=== PATIENT | female | born 1945 | race Caucasian/White ===

== ENCOUNTER → 2022-02-06 09:06 | Outpatient (BNVA) | payer MEDICARE, SELFPAY | PROVIDERS: Family Provider Family Medicine; PCP Family Medicine; Visit Provider Family Medicine | DX: M54.16 Radiculopathy, lumbar region (principal) | CPT/HCPCS: 72100 ==

== ENCOUNTER → 2022-03-13 10:07 | Outpatient (BNVA) | payer MEDICARE, SELFPAY | PROVIDERS: Family Provider Family Medicine; PCP Family Medicine; Referring Provider Family Medicine; Visit Provider Orthopaedic Surgery | DX: M54.16 Radiculopathy, lumbar region (principal) | CPT/HCPCS: 99203; 99204 ==

== ENCOUNTER → 2022-03-20 15:08 | Outpatient (BNVA) | payer MEDICARE, SELFPAY | PROVIDERS: Family Provider Family Medicine; PCP Family Medicine; Referring Provider Family Medicine; Visit Provider Podiatrist Foot & Ankle Surgery | DX: M79.671 Pain in right foot (principal); M21.611 Bunion of right foot | CPT/HCPCS: 73630; 99203; 99204 ==

== ENCOUNTER 2022-03-24 14:09 | Emergency (ER) | payer MEDICARE, SELFPAY ==
[2022-03-24 14:30] VITALS: BP 156/72; PULSE 69; RESP 14; TEMP 36.6; O2SAT 100
--- NOTE | 2022-03-24 15:28 | MRR_ITS ---
PROCEDURE INFORMATION: Exam: MR Thoracic Spine Without Contrast Exam date and time: 03/24/2022 4:02 PM Age: 76 years old Clinical indication: Pain in thoracic spine; Additional info: Pain weakness and numbness TECHNIQUE: Imaging protocol: Multiplanar magnetic resonance images of the thoracic spine without contrast. COMPARISON: CR XR lumbar spine 2-3V* [id number] 02/06/2022 9:23 AM FINDINGS: Vertebrae: No acute fracture. Old slight anterior wedging of T4 and T7 through T12. Slight spondylolisthesis at T2-3 and T5-6. Slight scoliosis. Spinal cord: Termination of the conus at the L1-L2 level. No abnormal signal in the cord. Discs/Spinal canal/Neural foramina: Degeneration of multiple thoracic discs. Degeneration of the C4-C5 through C6-C7 discs noted on the sagittal images obtained for counting purposes. Small central focal disc protrusion at T7-8 and left central focal disc protrusion at T9-10. Minimal left central focal disc protrusion at T12-L1. No significant canal stenosis. Soft tissues: No acute finding. MR/MR thoracic spin wo con* [id number] IMPRESSION: No acute fracture. Multiple old slight compression fractures and multilevel degenerative disease detailed above.
--- NOTE | 2022-03-24 15:28 | MRR_ITS ---
PROCEDURE INFORMATION: Exam: MR Lumbar Spine Without Contrast Exam date and time: 03/24/2022 4:23 PM Age: 76 years old Clinical indication: Other: Extreme lbp heard pop; Additional info: Pain weakness and numbness TECHNIQUE: Imaging protocol: Multiplanar magnetic resonance images of the lumbar spine without intravenous contrast. COMPARISON: CR XR lumbar spine 2-3V* [id number] 02/06/2022 9:23 AM FINDINGS: Vertebrae: No acute fracture or suggestion of a pars defect. Old mild anterior wedging of L1. Mild scoliosis. Spinal cord: Termination of the normal conus at the L1-L2 level. L1-L2: Continued marked narrowing of the L1-L2 disc. Central to left central focal disc extrusion at L1-L2 extending slightly superior to the disc level causing mild canal stenosis. Mild right foraminal stenosis at this level. L2-L3: Continued very marked disc narrowing at L2-L3. Annular bulging, ligamentum flavum hypertrophy, mild to moderate canal stenosis and marked right and [id number]-pd-lpqozara left foraminal stenoses at this level. L3-L4: Continued marked disc narrowing at L3-L4. Annular bulging, ligamentum flavum hypertrophy, moderate canal stenosis and marked left and [id number]-[id number] right foraminal stenoses at this level. L4-L5: Continued at least mild narrowing of the L4-L5 disc. Desiccation of this disc along with annular bulging, a broad-based left foraminal focal disc protrusion, ligamentum flavum hypertrophy, moderate canal stenosis and marked left and mild right foraminal stenoses at this level. L5-S1: Continued severe narrowing of the L5-S1 disc. Central focal disc protrusion, ligamentum flavum hypertrophy, minimal canal stenosis and moderate to marked bilateral foraminal stenoses at this level. Soft tissues: No acute soft tissue finding. MR/MR lumbar spine wo con* [id number] IMPRESSION: No acute fracture. Old mild L1 compression fracture. Extensive prominent degenerative disease with several disc protrusions/extrusions and significant canal and foraminal stenoses detailed above.
--- NOTE | 2022-03-24 16:12 | PC.NURSE ---
PT IS NOT IN ROOM. WILL RECHECK IN 30 MINS.
--- NOTE | 2022-03-24 16:28 | PC.NURSE ---
PT NOT IN ROOM WILL CONTINUE TO MONITOR FOR HER TO RETURN.
--- NOTE | 2022-03-24 16:43 | W.ED.EXTPRO ---
HPI - Extremity Problem General: Chief complaint: Extremity Injury, Lower Stated complaint: Leg pain Right Time Seen by Provider: 03/24/22 15:18 Source: patient Mode of arrival: ambulatory Limitations: no limitations History of Present Illness: 76 yo female patient presents to ER with low back pain and pain in her left leg. Pt states the pain is so intense she can not bear it. Pt states she lost control of her bladder this am but states it is due to the pain. Pt denies any perianal numbness or tingling. Pt denies any known trauma or injury. Pt denies any hx of iv dug abuse. Pt denies any fever, n/v/d. pt dnies any chest pain or SOB Associated symptoms: Deny chest pain, fever(s) or rash Review of Systems Const: Denies: fever(s), chills, body aches, change in appetite, change in weight, fatigue, malaise or diaphoresis Eyes: Denies: change in vision, blurry vision, blind spots, photophobia, eye discomfort, eye discharge, eye redness, floaters or seeing flashes ENMT: Denies: throat pain, uvular edema, enlarged tonsils, odynophagia, hoarseness, mouth pain, swelling of lips/tongue, oral sores, bleeding gums, dental pain, dry mouth, ear or mastoid pain, ear discharge, change in hearing, tinnitus, disequilibrium, nasal discharge, nasal congestion, post nasal drip or sinus pain Card: Denies: chest pain, palpitations, irregular heart rhythm, edema, swelling of feet/ankles, lightheadedness, syncope, pre-syncope, dyspnea on exertion, orthopnea, leg pain with exertion or acrocyanosis Resp: Denies: dyspnea, productive cough, non-productive cough, wheezing, stridor, pain on inspiration, change in phlegm color, hemoptysis or chest congestion GI: Denies: abdominal pain, nausea, vomiting, hematemesis, dysphagia, diarrhea, constipation, GI cramping, change in bowel habits or rectal pain : Denies: flank pain, difficulty voiding, dysuria, urinary frequency, urinary urgency, urinary hesitancy or hematuria Musc: Denies: neck pain, extremity swelling, joint pain, joint swelling, joint redness, joint warmth or deformity Skin/Breast: Denies: rash, pruritus, erythema, sores, new lesions, changes in skin color or dry skin Neuro: Denies: headache(s), numbness in extremities, weakness in extremities, sensory changes, lack of coordination, difficulty walking, frequent falls, dizziness, vertigo, confusion, behavioral changes, Slurred speech present, difficulty communicating thoughts or seizure-like activity Psych: Denies: anxiety, depression, suicidal ideation or homicidal ideation Endo: Denies: polyuria, polydipsia, tired all the time, cold intolerance, excessive sweating, flushing, hot flashes or heat intolerance Iam/Lymph: Denies: easy bruising, easy bleeding, petechiae, purpura, enlarged lymph nodes or tender lymph nodes All/Imm: Denies: urticaria, throat swelling, tongue swelling, facial swelling, acute wheezing or itchy eyes PFSH ED PFSH: Medical History Allergic rhinitis Benign hypertension RIP (generalized anxiety disorder) Hypothyroidism Osteoarthritis Post-menopausal Psychophysiological insomnia Surgical History H/O section H/O: hysterectomy S/P tonsillectomy Social History Smoking and tobacco status: former smoker Quit status (tobacco): has quit using tobacco Year quit tobacco: teenager Former quit date comment: smoked for 1 year- couple cigerettes a day Second hand smoke exposure: No Smoking risk assessment/counseling performed?: No Alcohol intake: current Alcohol intake frequency: holidays/special occasions only Alcohol type: wine Desire information about alcohol rehabilitation?: No Desire information about substance/drug rehabilitation?: No Lives independently: No Household members: spouse Current occupational status: retired History of recent travel: No Current gender identity: Female Physical Exam Const: COMMON NORMALS: no acute distress, patient oriented x3, healthy appearing, alert and well nourished GENERAL APPEARANCE: cooperative, comfortable, well kempt and well developed; not ill appearing ORIENTATION/CONSCIOUSNESS: Yes awake, Yes oriented to person, Yes oriented to place and Yes oriented to time HENMT: COMMON NORMALS: normocephalic, atraumatic, Normal external nose present and moist oral mucous membranes HEAD & SCALP: normal to inspection, normocephalic and atraumatic FACE & SINUS: normal facial exam, sinuses nontender and face symmetric NOSE: Normal external nose present THROAT: no uvular edema Eye: COMMON NORMALS: Equal, round and reactive pupils present, EOMs intact bilaterally, conjunctivae normal and no scleral icterus GENERAL EYE: appearance normal, both eyes and all related structures EYELID: eyelids normal CONJUNCTIVA: Yes conjunctivae normal SCLERA: sclerae normal CORNEA: Yes corneas normal PUPIL: Yes Equal, round and reactive pupils present Neck/C-Spine: COMMON NORMALS: full ROM, no lymphadenopathy, supple, no meningeal signs, no JVD and Thyroid normal GENERAL: Yes normal visual inspection and Yes trachea midline THYROID: Thyroid normal CERVICAL SPINE: Yes cervical ROM normal Lymph: LYMPHATIC: no lymphadenopathy noted and no lymphedema noted Chest: COMMONS NORMALS: normal inspection of the chest and normal palpation of entire chest wall Resp: COMMON NORMALS: normal respiratory effort, No retractions, No use of accessory muscles and clear to auscultation bilaterally EFFORT & INSPECTION: Yes able to speak in complete sentences and Yes symmetric chest movement AUSCULTATION: clear to auscultation bilaterally Cardio: COMMON NORMALS: no JVD, regular rate and regular rhythm RATE: regular rate RHYTHM: regular rhythm GI: COMMON NORMALS: Normal to inspection, nondistended, normoactive bowel sounds present, Soft to palpation, non-tender, No hepatosplenomegaly present, no masses and no bruits INSPECTION: Yes normal to inspection AUSCULTATION: Yes normoactive bowel sounds PALPATION: Yes Soft to palpation and Yes No hepatosplenomegaly present PERCUSSION: normal to percussion RECTAL EXAM: deferred : COMMON NORMALS: Yes no CVA tenderness, Yes normal external appearance, Yes normal appearance of the vagina, Yes normal appearance of the cervix, Yes normal bimanual exam, Yes No adnexal tenderness and Yes no masses BLADDER/KIDNEY EXAM: Yes no CVA tenderness BIMANUAL EXAM - VAGINA & UTERUS: Yes normal bimanual exam Back/Pelvis: COMMON NORMALS: no CVA tenderness, thoracic and lumbar spine normal to inspection, no thoracic nor lumbar tenderness, thoraco-lumbar ROM normal and straight leg raise negative bilaterally THORACIC SPINE/UPPER BACK: Yes normal to inspection LUMBAR SPINE/LOWER BACK: Yes normal to inspection Extremity: COMMON NORMALS: normal to inspection, full ROM and capillary refill normal GENERAL: Yes normal exam except as noted Neuro: COMMON NORMALS: patient oriented x3, CN's II-XII intact bilaterally, moves all extremities, no focal motor deficits, no sensory deficits noted, deep tendon reflexes 2+ bilaterally and gait normal SENSORIUM/ORIENTATION: Yes alert, Yes oriented to person, Yes oriented to place and Yes oriented to time MENINGEAL SIGNS: Yes no meningeal signs CRANIAL NERVES: Yes CN normal except as noted SPEECH: speech normal GAIT: Yes Normal gait present SENSORY EXAM: Yes extremities MOTOR EXAM: 5/5 motor strength present throughout Psych: COMMON NORMALS: mental status grossly normal, Normal thought process present, cooperative, normal affect, speech normal, activity/motor behavior normal, denies hallucinations, denies homicidal ideation and denies suicidal ideation APPEARANCE: Yes grossly normal and Yes well kempt ATTITUDE: Yes calm ACTIVITY/MOTOR BEHAVIOR: Yes appropriate eye contact SPEECH: Yes normal speech THOUGHT PROCESS: Normal thought process present THOUGHT CONTENT: Yes Normal thought content present ATTENTION/CONCENTRATION: Yes attention grossly intact MEMORY/COGNITION: Yes memory grossly intact INSIGHT: Good insight present (Psych) JUDGEMENT: Good judgement present (Psych) Skin: COMMON NORMALS: no rashes or lesions noted, no wounds, turgor normal, no jaundice, no petechiae and no mottling GENERAL SKIN EXAM: no rashes or lesions noted and turgor normal Course Vital Signs: Vital signs: Vital Signs Temperature 97.9 F 03/24/22 14:30 Pulse Rate 69 03/24/22 14:30 Respiratory Rate 14 03/24/22 14:30 Blood Pressure 156/72 03/24/22 14:30 Pulse Oximetry 100 03/24/22 14:30 MDM - Extremity (Nontraumatic) Medical Decision Making Patient is well appearing non toxic and stats she is unable to ambulate pt rates pain 10/10. Given patient clinical exam findings as well as complaints I will plan to MR her at this time. Report given to DULCE Vivas at this time Discharge Plan Discharge Condition: Stable Prescriptions: No Action melatonin 3 mg capsule 3 mg PO DAILY 0RF respiratory virus PO 0RF ketotifen fumarate [Zaditor] 0.025 % (0.035 %) drops 1 drop ophthalmic (eye) BID 0RF Eucrisa 2 % ointment 1 applic TOPICAL BID 0RF multivitamin [Multiple Vitamins] Tablet 1 tab PO QAM 0RF Probiotic 100 billion cell capsule 1 cap PO DAILY 0RF magnesium 250 mg tablet 400 mg PO QDAY 0RF triamcinolone acetonide 0.025 % cream 1 applic TOPICAL TID PRN (Reason: itching) Qty: 80 2RF vkfpwrsp-elyxlirct-QE 3.5-10,000-1 mg/mL-unit/mL-% drops,suspension 1 drp EAR-BOTH BID PRN (Reason: EAR ITCHING ) Qty: 10 2RF levothyroxine 50 mcg tablet 50 mcg PO DAILY 30 Days Qty: 30 10RF tramadol 50 mg tablet 50 mg PO TID PRN (Reason: pain) 10 Days Qty: 30 0RF gabapentin 100 mg capsule 300 mg PO TID MDD 9 caps PRN (Reason: pain) Qty: 30 1RF Rx Instructions: 1-3 caps up to three times a day as needed for pain estriol 2.5mg\estradiol 0.3125mg\erston 0.3125mg\DHEA 10mg\testosterone 0.5mg\progesterone 200mg no mint PO 0RF Rx Instructions: Dissolve 1\2 fredis between upper cheek and gums twice daily fluticasone propionate 50 mcg/actuation spray,suspension 1 spray INTRANASAL DAILY Qty: 16 5RF Rx Instructions: administer into each nostril Referrals: Sonali Santos MD [Primary Care Provider] - Coding Level of Care Code ED Efficiency Expert for Anjali Cai
[2022-03-24] MEDS: HYDROcodone-acetaminophen 5-325 mg Tablet 1 TAB PO (16:57)
[2022-03-24 17:20] LABS: Add Urine Microscopic? NO
[2022-03-24 17:22] LABS: Charge for UA Resulting for Rev
[2022-03-24 17:25] LABS: Bilirubin Urine Neg (Negative); Blood Urine Neg (Negative); Glucose Urine UA Norm (Normal); Ketones Urine 2+ (Negative); Leukocyte Esterase Urine Negative (Negative); Nitrate Urine Negative (Negative); Protein Urine Neg (Negative); Urine Appearance Clear (CLEAR); Urine Color Yellow (Yellow); Urobilinogen Urine Norm (Negative); pH Urine 5 (5-7)
[2022-03-24 17:26] LABS: Basophils % 0.4 %; Eosinophils % 0.2 %; Hematocrit 35.1 % (37.0-47.0); Hemoglobin 12.9 g/dL (11.5-15.3); Lymphocytes # 1.1 10^3/uL (0.8-4.8); Lymphocytes % 10.5 %; Mean Corpuscular HGB Conc 36.8 g/dL (30.0-36.0); Mean Corpuscular Hemoglobin 34.6 pg (28.0-34.0); Mean Corpuscular Volume 94.1 fl (81-99); Mean Platelet Volume 12.2 fL (7.4-10.4); Monocytes # 0.6 10^3/uL (0.2-0.9); Monocytes % 5.5 %; Neutrophils # 8.25 10^3/uL (1.8-7.7); Neutrophils % 82.9 %; Nucleated Red Blood Cells % 0 %; Platelet Count 203 10^3/cmm (130-400); Red Blood Count 3.73 10^6/uL (4.1-5.3); Red Cell Distribution Width 14.6 % (12.1-15.1)
[2022-03-24 17:38] LABS: Erythrocyte Sedimentation Rate 3 mm/hr (0-15)
[2022-03-24 17:59] VITALS: RESP 16; O2SAT 100
[2022-03-24] MEDS: fentaNYL 50 mcg/mL INJ 2mL IVP (17:59)
[2022-03-24 18:00] LABS: Alanine Aminotransferase 17 U/L (0-33); Albumin Level 4.4 g/dL (3.5-5.2); Alkaline Phosphatase 64 IU/L (35-105); Anion Gap 18.7 (5-19); Aspartate Amino Transferase 16 U/L (0-32); Blood Urea Nitrogen 7 mg/dL (8-23); CKMB 2.8 ng/mL (0-5.34); Carbon Dioxide 21 mmol/L (22-29); Chloride 100 mmol/L (98-107); Creatine Phosphokinase 41 U/L (26-192); Globulin 2.5 g/dL (1.3-4.6); Glucose 98 mg/dL (65-115); Osmolality Calculated 280 mOsm/kg (285-295); Potassium 3.7 mmol/L (3.5-5.1); Sodium 136 mmol/L (136-145); Total Bilirubin 0.2 mg/dL (0.15-1.2); Total Protein 6.9 g/dL (6.6-8.7)
[2022-03-24] MEDS: ketorolac 30 mg/mL INJ IVP (19:12)
[2022-03-24 19:13] VITALS: RESP 18
[2022-03-24] MEDS: oxyCODONE-APAP 5-325 mg Tablet 2 TAB PO (19:13)
[2022-03-24] MEDS: dexamethasone 10 mg/mL INJ IVP (19:13)
[2022-03-24] MEDS: orphenadrine 30 mg/mL Inj 2 mL 60 MG IVP (19:13)
[2022-03-24 19:37] VITALS: BP 164/84; PULSE 90; RESP 18; O2SAT 100
--- NOTE | 2022-03-27 10:33 | DCPLANNER ---
Addendum entered by Rochelle Jara 03/29/22 14:07: Patient had a follow up appointment scheduled for 03.27.22 with ortho - patient did attend appointment. Original Note: hvac project manager had message to schedule a follow up appointment for patient with ortho. hvac project manager sent patients information to the front office staff at ortho. Patients information will be printed and reviewed. Clinic will call patient with appointment information.
== END 2022-03-24 19:39 | disposition home or self-care (01) ==
PROVIDERS: Registered Nurse; Emergency Provider Physician Assistant; PCP Family Medicine
DX: M79.604 Pain in right leg (principal); I10 Essential (primary) hypertension
CPT/HCPCS: 72146; 72148; 80053; 81003; 82550; 82553; 85025; 85651; 86140; 96374; 96375; 99284; J1100; J1885; J2360; J3010

== ENCOUNTER → 2022-03-27 10:11 | Outpatient (BNVA) | payer MEDICARE, SELFPAY | PROVIDERS: PCP Family Medicine; Visit Provider Orthopaedic Surgery | DX: M48.062 Spinal stenosis, lumbar region with neurogenic claudication (principal) | CPT/HCPCS: 99214 ==

== ENCOUNTER 2022-04-04 06:22 | Day surgery (SDC) | payer MEDICARE, SELFPAY ==
[2022-03-30 13:45] VITALS: BMI 21.2
[2022-04-04] VITALS (11 sets, daily range): BP systolic 138–171; BP diastolic 55–97; PULSE 82–100; RESP 14–18; TEMP 36.2–36.8; O2SAT 96–100
--- NOTE | 2022-04-04 | SCC_ITS ---
Procedure done: 1. L3/4 laminectomy with partial facetectomy 2. L4/5 laminectomy with partial facetectomy 32.7 seconds of fluoroscopic guidance, for a cumulative dose of 7.02 mGy, was provided to Dr. Randhawa by the radiology department. C-arm images of the lumbar spine were saved for the patient's permanent record. [facility]
--- NOTE | 2022-04-04 | XR_ITS ---
WS: [id number] INTRAOPERATIVE TECHNIQUE: 4 Spot fluoroscopic images for intraoperative purposes. FLUOROSCOPY TIME: 32.7 seconds CLINICAL INFORMATION: decompression COMPARISON: None. FINDINGS: Localization marker initially projected over the interspace LEFT L4-L5 and LEFT L3-L4. Final imaging demonstrates localization marker dorsal L5-S1 spinous process XR/XR lumbar spine 1V port [id number] IMPRESSION: Images obtained for intraoperative purposes.
[2022-04-04] MEDS: sodium chloride 0.9% 1,000 ML 30 ML IV (07:49)
[2022-04-04] MEDS: scopolamine 1.5 Patch 1 PATCH TRANSDERMA (07:51)
--- NOTE | 2022-04-04 08:07 | ANES.PREANE2 ---
Pre-Anesthetic Assessment Height/Weight: Height 1.6 m Weight 54.431 kg Temp Pulse Resp BP Pulse Ox 97.9 F 85 18 160/63 97 04/04/22 07:34 04/04/22 07:34 04/04/22 07:34 04/04/22 07:34 04/04/22 07:34 Preop Diagnosis: Lumbar stenosis with neurogenic claudication Operation Date: 04/04/22 08:05 Proposed Procedures p Lumbar Spine Decompression L3/4 L4/5 [id number] M48.062(Not Applicable) - Charlie Randhawa, Familial anesthetic complications: none Was Beta Dacia taken within 24 hours: N/A Was Clonidine taken within 24 hours: N/A Last intake: Intake Last Liquid Date 04/03/22 Last Liquid Time 16:30 Last Solid Date 04/03/22 Last Solid Time 16:30 Social No alcohol and No tobacco Exam alert, oriented x 3, clear to auscultation bilaterally and regular rate & rhythm Airway Submandibular: within normal limits and Other (Limited extension ) Cervical ROM: Other (Limited extension ) Mallampati: Class II Dentition: chipped Comments: Comments: Missing teeth Pulmonary None reported CV/HEM Hypertension and Murmur None reported Hepatic None reported GI Gastroesophageal Reflux Disease Metabolic Thyroid Disease Musc/skel Lower Back Pain and Osteoarthritis/DJD Neuropsych Anxiety, Depression and Neuropathy (Lumbar radiculopathy ) Anesthetic Plan ASA status: 3 Anesthesia: Anesthesia Evaluation and General Other: We discussed risk and benefits of general anesthesia including PONV, sore throat (sometimes severe), corneal abrasion, positioning and peripheral nerve injuries, life threatening allergic reaction, post operative ICU admission requiring prolonged intubation, stroke, heart attack, , and rare incidences of recall. Patient consents to proceed with general anesthesia. Risk of > 500 ml blood loss (7ml/kg in children): No Medications/Allergies Home Medications Medication Instructions Recorded Confirmed Last Taken Type Lactobacillus 40-Bifidobact 1 cap PO DAILY cap 11/26/19 04/04/22 04/02/22 History 3-S.thermophilus 100 billion cell capsule (Probiotic) ketotifen fumarate 0.025 % (0.035 1 drop OPHTHALMIC (EYE) BID 11/26/19 04/04/22 04/04/22 05:00 History %) eye drops (Zaditor) multivitamin (Multiple Vitamins) 1 tab PO QAM 11/26/19 04/04/22 04/03/22 History estriol 2.5mg\estradiol 2.5 mg PO BID 05/05/21 04/04/22 04/04/22 05:00 History 0.3125mg\erston 0.3125mg\DHEA 10mg\testosterone 0.5mg\progesterone 200mg no mint magnesium 250 mg tablet 400 mg PO QDAY tab 09/12/21 04/04/22 04/03/22 History melatonin 3 mg capsule 3 mg PO DAILY 09/12/21 04/04/22 04/03/22 History efkjcmqa-uunowyrfz-havdrjogx 3.5 1 drp EAR-BOTH BID PRN #10 ml 12/26/21 04/04/22 03/21/22 Rx mg-10,000 unit/mL-1 % ear drops,susp levothyroxine 50 mcg tablet 50 mcg PO DAILY 30 Days #30 tab 12/27/21 04/04/22 04/03/22 Rx tramadol 50 mg tablet 50 mg PO TID PRN 10 Days #30 tab 03/13/22 04/04/22 04/03/22 Rx ondansetron 4 mg disintegrating 4 mg PO Q8H PRN #15 tab 03/24/22 04/04/22 03/27/22 Rx tablet methocarbamol 750 mg tablet 750 mg PO Q8H PRN #30 tab 03/27/22 04/04/22 04/03/22 Rx oxycodone-acetaminophen 5 mg-325 1 tab PO Q4H PRN 7 Days #40 tab 03/27/22 04/03/22 Unknown Rx mg tablet (Percocet) aspirin-caffeine 500 mg-32.5 mg 1 tab PO PRN PRN 03/30/22 04/04/22 03/21/22 History tablet (Back and Body Pain Reliever) polysorbate 80-glycerin 1 %-1 % 1 drp OPHTHALMIC (EYE) PRN PRN 03/30/22 04/04/22 04/04/22 05:00 History eye drops oxycodone-acetaminophen 10 mg-325 1 - 2 tab PO Q4H PRN 7 Days #40 tab 04/04/22 Unknown Rx mg tablet oxycodone-acetaminophen 5 mg-325 1 tab PO Q4H PRN 04/04/22 04/04/22 04/02/22 History mg tablet Allergies Allergy/AdvReac Type Severity Reaction Status Date / Time metoprolol Allergy Mild ALGY-RASH Verified 04/04/22 07:29 morphine Allergy Mild ADR-Vomitin Verified 04/04/22 07:29 g procaine [From Novocain] Allergy Mild ADR-Vomitin Verified 04/04/22 07:29 g gluten Allergy Unknown UN Verified 04/04/22 07:29 lactase [From Dairy Aid] Allergy Unknown Unknown Verified 04/04/22 07:29 Current Medications Generic Name Dose Route Start Last Admin Trade Name Freq PRN Reason Stop Dose Admin Sodium Chloride 1,000 mls @ 30 mls/hr 04/04/22 07:30 04/04/22 07:49 Sodium Chloride 0.9% IV 04/05/22 07:29 30 mls/hr .Q24H JENNIFER Administration PFSH Anesthesia Medical History Allergic rhinitis Benign hypertension RIP (generalized anxiety disorder) Hypothyroidism Osteoarthritis Post-menopausal Psychophysiological insomnia Surgical History H/O section H/O: hysterectomy S/P tonsillectomy Social History Smoking and tobacco status: former smoker Quit status (tobacco): has quit using tobacco Year quit tobacco: teenager Former quit date comment: smoked for 1 year- couple cigerettes a day Second hand smoke exposure: No Smoking risk assessment/counseling performed?: No Alcohol intake: current Alcohol intake frequency: holidays/special occasions only Alcohol type: wine Desire information about alcohol rehabilitation?: No Desire information about substance/drug rehabilitation?: No Lives independently: No Household members: spouse Current occupational status: retired History of recent travel: No Current gender identity: Female Data Anesthesia Cardiac Studies: No Data to Display
--- NOTE | 2022-04-04 08:19 | W.PM.OPSUD ---
Surgery/Procedure H&P Update DATE OF PROCEDURE: April 04, 2022 DATE H&P PERFORMED: 03/27/22 H&P UPDATE INFORMATION: I have reviewed H&P completed within last 30 days, I have examined patient prior to procedure and No changes to prior documentation PREOP DIAGNOSIS: Lumbar stenosis with neurogenic claudication PLANNED PROCEDURE: Operation Date: 04/04/22 08:05 Proposed Procedures p Lumbar Spine Decompression L3/4 L4/5 [id number] M48.062(Not Applicable) - Charlie Randhawa DO
--- NOTE | 2022-04-04 10:24 | PM.OP ---
Operative Report Date of procedure: April 04, 2022 Pre-op diagnosis: Preop Diagnosis Lumbar stenosis with neurogenic claudication Post-op diagnosis: same Procedure done: 1. L3/4 laminectomy with partial facetectomy 2. L4/5 laminectomy with partial facetectomy Surgeon: Charlie Randhawa Estimated blood loss (mL): 5 Procedure: 1. L3/4 laminectomy with partial facetectomy 2. L4/5 laminectomy with partial facetectomy Patient is brought to the operative suite. After undergoing anesthesia they are placed in the prone position. All areas of impingement are well padded. Patient is then prepped and draped in the normal sterile fashion. A skin incision is made over the L3/4 level. This is confirmed under c-arm guidance. A series of dilators are passed and the tubular retractor is docked on the L3 lamina. A bovie is used to clear the soft tissue off the lamina and the L 3/4 facet joint. A high speed efra is then used to perform the laminectomy and take down the medial aspect of the L 3/4 facet joint. A kerrison rongeure was then used to take down the remaining lamina and smooth the edge of the laminectomy up to the point where the ligamentum flavum attaches. Attention was then brought to the medial aspect of the facet joint. The remaining medial aspect of the superior and inferior aspect of the facet joint were taken down with the kerrison from the pedicle of L3 to L 4. The facet joint had significant hypertrophy. Attention was then brought to the Ligamentum Flavum. The ligament was taken down from the lamina of L3 to L4 and out medially to the remaining facet joint. The ligament was thick. The dura was then exposed. The dura was in good repair. The L3 nerve was then traced with a curette out the L3/4 foramen and found to be adequately decompressed. The L4 nerve was traced with a curette around the L4 pedicle. The lateral recess was opened with a kerrison helping to further decompress the L4 nerve. Wound is then irrigated copiously with saline and surgiflo is used to stop any bleeding. The tubular retractor is removed and A skin incision is made over the L4/5 level. This is confirmed under c-arm guidance. A series of dilators are passed and the tubular retractor is docked on the L4 lamina. A bovie is used to clear the soft tissue off the lamina and the L 4/5 facet joint. A high speed efra is then used to perform the laminectomy and take down the medial aspect of the L 4/5 facet joint. A kerrison rongeure was then used to take down the remaining lamina and smooth the edge of the laminectomy up to the point where the ligamentum flavum attaches. Attention was then brought to the medial aspect of the facet joint. The remaining medial aspect of the superior and inferior aspect of the facet joint were taken down with the kerrison from the pedicle of L4 to L 5. The facet joint had significant hypertrophy. Attention was then brought to the Ligamentum Flavum. The ligament was taken down from the lamina of L4 to L5 and out medially to the remaining facet joint. The ligament was thick. The dura was then exposed. The dura was in good repair. The L4 nerve was then traced with a curette out the L4/5 foramen and found to be adequately decompressed. The L5 nerve was traced with a curette around the L5 pedicle. The lateral recess was opened with a kerrison helping to further decompress the L5 nerve. Wound is then irrigated copiously with saline and surgiflo is used to stop any bleeding. The tubular retractor is removed and the wound is closed with vicryl and monocryl suture. Glue is then used to protect the wound. A sterile dressing is then placed. Patient was then placed in the supine position and transferred to the PACU in stable condition.
[2022-04-04] MEDS: oxyCODONE-APAP 10-325 mg Tablet 1 TAB PO (11:02)
--- NOTE | 2022-04-04 14:12 | ANE.PACU2 ---
Inpatient post-anesthesia follow up: Airway intact: Yes Vital signs: Temperature 98.2 F Pulse Rate 82 Respiratory Rate 18 Blood Pressure 159/78 Pulse Oximetry 98 Oxygen Delivery Me thod Room Air Oxygen Flow Rate 6 Fraction of Inspir ed Oxygen Hydration adequate: Yes Nausea and vomiting: No Pain level: 4 Mental status: Baseline
== END 2022-04-04 11:34 | disposition home or self-care (01) ==
PROVIDERS: PCP Family Medicine; Visit Provider Orthopaedic Surgery
PROC: (CPT 63005; principal; 2022-04-04 08:05)
DX: M48.062 Spinal stenosis, lumbar region with neurogenic claudication (principal); I10 Essential (primary) hypertension; K21.9 Gastro-esophageal reflux disease without esophagitis; F32.9 Major depressive disorder, single episode, unspecified; F41.1 Generalized anxiety disorder; E03.9 Hypothyroidism, unspecified; M19.90 Unspecified osteoarthritis, unspecified site; Z87.891 Personal history of nicotine dependence
CPT/HCPCS: 63047; 63048; 72020; 76000; J1100; J2250; J2405; J2704; J2710; J3010; J3490; J7030

== ENCOUNTER → 2022-04-19 09:36 | Outpatient (BNVA) | payer MEDICARE, SELFPAY | PROVIDERS: PCP Family Medicine; Visit Provider Physician Assistant | DX: Z47.89 Encounter for other orthopedic aftercare (principal); Z98.890 Other specified postprocedural states | CPT/HCPCS: 99024 ==

== ENCOUNTER → 2022-06-05 08:04 | Outpatient (BNVA) | payer MEDICARE, SELFPAY | PROVIDERS: PCP Family Medicine; Visit Provider Physician Assistant | DX: Z47.89 Encounter for other orthopedic aftercare (principal); Z98.890 Other specified postprocedural states | CPT/HCPCS: 99024 ==

== ENCOUNTER → 2022-07-26 14:16 | Outpatient (BNVA) | payer MEDICARE, SELFPAY | PROVIDERS: PCP Family Medicine; Visit Provider Nurse Practitioner Family | DX: M79.672 Pain in left foot (principal) | CPT/HCPCS: 73630 ==

== ENCOUNTER 2023-01-21 13:10 | Outpatient (CLI) | payer MEDICARE, SELFPAY ==
--- NOTE | 2023-01-21 13:45 | USCV_ITS ---
Jo Ann Kirkland Age: 77 Gender: F : 1945 Exam Date: 01/21/2023 13:58 Ordering Phys: Angela Chambers MD ([email or web address]) Technologist: Exam Location: [facility] [place] Indication: murmur BP: 146 / 73 HR: 68 Rhythm: Sinus Technical Quality: Adequate MEASUREMENTS (Male / Female) Normal Values 2D ECHO LV Diastolic Diameter PLAX 3.9 cm 4.2 - 5.9 / 3.9 - 5.3 cm LV Systolic Diameter PLAX 3.1 cm IVS Diastolic Thickness 1.1 cm 0.6 - 1.0 / 0.6 - 0.9 cm IVS Systolic Thickness 1.3 cm LVPW Diastolic Thickness 1.0 cm 0.6 - 1.0 / 0.6 - 0.9 cm LVPW Systolic Thickness 1.2 cm LVOT Diameter 2.0 cm LV Ejection Fraction 2D Teich 35.1 % LV Ejection Fraction MOD 2C 64.9 % LV Ejection Fraction 2C AL 66.0 % LA Diameter 3.4 cm IVC Diameter 0.8 cm M-MODE Aortic Annulus Diameter 2.8 cm LA Ao Ratio MM 1.3 MV E Point Septal Separation 0.7 cm DOPPLER AV Peak Velocity 234.0 cm/s LVOT Peak Velocity 135.0 cm/s AV Area Cont Eq vti 2.1 cm squared AV Area Cont Eq pk 1.8 cm squared MV Area PHT 5.0 cm squared Mitral E to A Ratio 0.6 MV E' Velocity 59.0 cm/s Mitral E to MV E' Ratio 12.6 Mitral E to LV E' Lateral Ratio 15.6 Mitral E to LV E' Septal Ratio 10.6 TR Peak Velocity 220.7 cm/s TR Peak Gradient 19.5 mmHg TV Peak E Velocity 100.0 cm/s Right Atrial Pressure 3.0 mmHg Pulmonary Artery Systolic Pressu 22.5 mmHg RV Acceleration Time 0.2 s FINDINGS Left Ventricle Normal left ventricular size and systolic function, EF 67 %. Mild left ventricular hypertrophy. No regional wall motion abnormalities. Grade I/IV diastolic dysfunction (abnormal relaxation filling pattern), normal to mildly elevated filling pressures. Right Ventricle The right ventricle is normal in size and function. Right Atrium The right atrium is normal in size. Left Atrium The left atrium is normal in size. Mitral Valve Moderate mitral annular calcification. Mild mitral valve regurgitation. Aortic Valve Moderate aortic valve calcification. Aortic valve sclerosis. Tricuspid Valve Trace tricuspid valve regurgitation. Pulmonic Valve No gross abnormalities noted Pericardium Normal pericardium without effusion. Aorta Normal ascending aorta dimension. IVC Normal inferior vena cava. CONCLUSIONS Normal left ventricular size and systolic function, EF 67 %. Mild left ventricular hypertrophy. No regional wall motion abnormalities. Grade I/IV diastolic dysfunction (abnormal relaxation filling pattern), normal to mildly elevated filling pressures. Moderate mitral annular calcification. Mild mitral valve regurgitation. Moderate aortic valve calcification. Aortic valve sclerosis. Trace tricuspid valve regurgitation. Estimated pulmonary artery peak systolic pressure 22 mmHg There is no pericardial effusion. There are no intracardiac masses. No similar previous studies are available for comparison Dr Abelardo Cartwright MD [facility] (Electronically Signed) Final Date: 25 January 2023 18:09 S
== END 2023-01-21 13:11 | disposition home or self-care (01) ==
LOC: RAD 13:17
PROVIDERS: PCP Family Medicine; Visit Provider Internal Medicine Cardiovascular Disease
DX: I08.3 Combined rheumatic disorders of mitral, aortic and tricuspid valves (principal); R06.02 Shortness of breath
CPT/HCPCS: 93306

== ENCOUNTER → 2023-03-05 10:27 | Outpatient (BNVA) | payer MEDICARE, SELFPAY | PROVIDERS: PCP Family Medicine; Visit Provider Nurse Practitioner Family | DX: R39.9 Unspecified symptoms and signs involving the genitourinary system (principal); R35.0 Frequency of micturition | CPT/HCPCS: 81000 ==

== ENCOUNTER → 2023-08-06 07:48 | Outpatient (BNVA) | payer MEDICARE, SELFPAY | PROVIDERS: Visit Provider Podiatrist Foot & Ankle Surgery | DX: M19.072 Primary osteoarthritis, left ankle and foot (principal); L60.3 Nail dystrophy | CPT/HCPCS: 99213 ==

== ENCOUNTER 2023-08-07 06:00 | Outpatient (RCR) | payer MEDICARE, SELFPAY | END 2023-09-03 23:59 | disposition home or self-care (01) | LOC: MPT 06:00 | PROVIDERS: Visit Provider Family Medicine | DX: M48.062 Spinal stenosis, lumbar region with neurogenic claudication (principal); R29.898 Other symptoms and signs involving the musculoskeletal system; R29.3 Abnormal posture; Z98.890 Other specified postprocedural states | CPT/HCPCS: 97110; 97162; G0283 ==

== ENCOUNTER 2023-09-04 06:00 | Outpatient (RCR) | payer MEDICARE, SELFPAY | END 2023-10-03 23:59 | disposition home or self-care (01) | LOC: MPT 06:00 | PROVIDERS: PCP Family Medicine; Visit Provider Family Medicine | DX: M48.062 Spinal stenosis, lumbar region with neurogenic claudication (principal); R29.898 Other symptoms and signs involving the musculoskeletal system; R29.3 Abnormal posture | CPT/HCPCS: 97110; 97140; G0283; H0004 ==

== ENCOUNTER → 2023-09-09 12:48 | Outpatient (BNVA) | payer MEDICARE, SELFPAY | PROVIDERS: PCP Family Medicine; Visit Provider Podiatrist Foot & Ankle Surgery | DX: M19.072 Primary osteoarthritis, left ankle and foot (principal); L60.3 Nail dystrophy | CPT/HCPCS: 99213 ==

== ENCOUNTER 2023-10-04 06:00 | Outpatient (RCR) | payer MEDICARE, SELFPAY | END 2023-11-03 23:59 | disposition home or self-care (01) | LOC: MPT 06:00 | PROVIDERS: PCP Family Medicine; Visit Provider Family Medicine | DX: M48.062 Spinal stenosis, lumbar region with neurogenic claudication (principal) | CPT/HCPCS: 97110; G0283 ==

== ENCOUNTER 2023-11-04 06:00 | Outpatient (RCR) | payer MEDICARE, SELFPAY | END 2023-12-04 23:59 | disposition home or self-care (01) | LOC: MPT 06:00 | PROVIDERS: PCP Family Medicine; Visit Provider Family Medicine | DX: M48.062 Spinal stenosis, lumbar region with neurogenic claudication (principal) | CPT/HCPCS: 97110; 97140; G0283 ==

== ENCOUNTER → 2023-12-03 07:26 | Outpatient (BNVA) | payer MEDICARE, SELFPAY | PROVIDERS: PCP Family Medicine; Visit Provider Specialist | DX: G30.9 Alzheimer's disease, unspecified (principal); R41.89 Other symptoms and signs involving cognitive functions and awareness; R46.89 Other symptoms and signs involving appearance and behavior | CPT/HCPCS: 96116; 99205 ==

== ENCOUNTER 2023-12-05 06:00 | Outpatient (RCR) | payer MEDICARE, SELFPAY | END 2024-01-02 23:59 | disposition home or self-care (01) | LOC: MPT 06:00 | PROVIDERS: PCP Family Medicine; Visit Provider Family Medicine | DX: M48.062 Spinal stenosis, lumbar region with neurogenic claudication (principal) | CPT/HCPCS: 97110; 97112; G0283 ==

== ENCOUNTER → 2023-12-20 12:00 | Outpatient (BNVA) | payer MEDICARE, SELFPAY | PROVIDERS: PCP Family Medicine; Referring Provider Family Medicine; Visit Provider Family Medicine | DX: R35.0 Frequency of micturition (principal); R39.11 Hesitancy of micturition | CPT/HCPCS: 81000; 87086 ==

== ENCOUNTER 2024-01-03 06:00 | Outpatient (RCR) | payer MEDICARE, SELFPAY | END 2024-02-02 23:59 | disposition home or self-care (01) | LOC: MPT 06:00 | PROVIDERS: PCP Family Medicine; Visit Provider Family Medicine | DX: M48.062 Spinal stenosis, lumbar region with neurogenic claudication (principal) | CPT/HCPCS: 97110; 97112; G0283 ==

== ENCOUNTER 2024-02-03 06:00 | Outpatient (RCR) | payer MEDICARE, SELFPAY | END 2024-03-03 23:59 | disposition home or self-care (01) | LOC: MPT 06:00 | PROVIDERS: PCP Family Medicine; Visit Provider Family Medicine | DX: M48.062 Spinal stenosis, lumbar region with neurogenic claudication (principal) | CPT/HCPCS: 97110; G0283 ==

== ENCOUNTER → 2024-04-03 07:35 | Outpatient (BNVA) | payer MEDICARE, SELFPAY | PROVIDERS: PCP Family Medicine; Visit Provider Specialist | DX: G30.9 Alzheimer's disease, unspecified (principal); F02.80 Dementia in other diseases classified elsewhere, unspecified severity, without behavioral disturbance, psychotic disturbance, mood disturbance, and anxiety | CPT/HCPCS: 99214 ==

== ENCOUNTER → 2024-04-20 10:28 | Outpatient (BNVA) | payer MEDICARE, SELFPAY | PROVIDERS: PCP Family Medicine; Visit Provider Internal Medicine Cardiovascular Disease | DX: I35.0 Nonrheumatic aortic (valve) stenosis (principal) | CPT/HCPCS: 99203 ==

== ENCOUNTER 2024-05-25 12:13 | Outpatient (CLI) | payer MEDICARE, SELFPAY ==
--- NOTE | 2024-05-25 12:45 | USCV_ITS ---
Jo Ann Kirkland Age: 78 Gender: F : 1945 Exam Date: 05/25/2024 12:39 Ordering Phys: Anthony Andersen MD ([email or web address]) Technologist: CT Exam Location: [facility] – [place] Indication: cp sob BP: 174 / 83 HR: 82 Rhythm: Sinus Technical Quality: Adequate MEASUREMENTS (Male / Female) Normal Values 2D ECHO LVOT Diameter 2.0 cm LV Ejection Fraction MOD 4C 64.4 % LV Ejection Fraction MOD 2C 71.3 % LV Ejection Fraction 2C AL 71.9 % LA Diameter 3.4 cm RA Systolic Volume 4C AL 28.6 ml RA Systolic Volume 4C MOD 26.5 ml LA Sys Volume AL 38.9 cm cubed LA Sys Volume Index AL 22.9 cm cubed/m squared Aorta at Sinotubular Diameter 2.5 cm IVC Diameter 1.5 cm M-MODE LA Ao Ratio MM 1.2 AV Cusp Separation MM 1.6 cm DOPPLER AV Peak Velocity 279.0 cm/s LVOT Peak Velocity 172.0 cm/s AV Area Cont Eq vti 1.7 cm squared AV Area Cont Eq pk 1.9 cm squared MV Peak Velocity 194.0 cm/s MV Area PHT 4.0 cm squared Mitral E to A Ratio 0.7 TV Peak E Velocity 72.0 cm/s Right Atrial Pressure 3.0 mmHg PV Peak Velocity 130.0 cm/s FINDINGS Left Ventricle Left atrial is normal size. LV systolic function is normal with EF 60-65%. No regional wall motion abnormalities are seen. Grade 1 diastolic dysfunction. Basal septal hypertrophy. Right Ventricle Normal in size and function Right Atrium Normal in size Left Atrium Normal in size Mitral Valve Mild mitral annular calcification seen. Mild mitral regurgitation. Mild mitral stenosis with mean gradient across mitral valve of 5.6mmHg Aortic Valve Aortic valve is thickened. Moderate aortic stenosis with aortic valve area 1.6 cm squared and mean gradient of 21 mmHg. Tricuspid Valve Insufficient TR jet to calculate RVSP Pulmonic Valve Trace pulmonic regurgitation. Pericardium Normal. Aorta Normal in size IVC Appears to be normal CONCLUSIONS LV systolic function is normal with EF of 60 to 65%. Grade 1 diastolic dysfunction Basal septal hypertrophy seen Mild mitral regurgitation Mild mitral stenosis Moderate aortic stenosis. Trace pulmonic regurgitation Compared to prior echocardiogram from 2022, patient now has moderate aortic stenosis. Syed Lim MD (Electronically Signed) Final Date: 09 June 2024 18:02 S
== END 2024-05-25 12:14 | disposition home or self-care (01) ==
LOC: RAD 12:14
PROVIDERS: PCP Family Medicine; Visit Provider Internal Medicine Cardiovascular Disease
DX: I08.0 Rheumatic disorders of both mitral and aortic valves (principal)
CPT/HCPCS: 93306

== ENCOUNTER → 2024-09-30 09:17 | Outpatient (BNVA) | payer MEDICARE, SELFPAY | PROVIDERS: PCP Family Medicine; Visit Provider Specialist | DX: G30.9 Alzheimer's disease, unspecified (principal); F02.80 Dementia in other diseases classified elsewhere, unspecified severity, without behavioral disturbance, psychotic disturbance, mood disturbance, and anxiety | CPT/HCPCS: 36415; 82542; 83520; 96116; 99214; 99215 ==

== ENCOUNTER → 2024-12-03 09:11 | Outpatient (BNVA) | payer MEDICARE, SELFPAY | PROVIDERS: PCP Family Medicine; Visit Provider Family Medicine | DX: N32.81 Overactive bladder (principal); R35.0 Frequency of micturition; N39.46 Mixed incontinence | CPT/HCPCS: 81000 ==

== ENCOUNTER → 2025-01-19 07:45 | Outpatient (BNVA) | payer MEDICARE, SELFPAY | PROVIDERS: PCP Family Medicine; Visit Provider Specialist | DX: G30.9 Alzheimer's disease, unspecified (principal); F02.80 Dementia in other diseases classified elsewhere, unspecified severity, without behavioral disturbance, psychotic disturbance, mood disturbance, and anxiety; R41.89 Other symptoms and signs involving cognitive functions and awareness | CPT/HCPCS: 99214 ==

== ENCOUNTER 2025-01-22 13:58 | Outpatient (CLI) | payer MEDICARE, SELFPAY ==
--- NOTE | 2025-01-22 14:30 | MR_ITS ---
WS: [id number] MRI HEAD WITHOUT CONTRAST TECHNIQUE: Sagittal T1, T2 axial, T2 axial FLAIR, axial and coronal T1 images, axial susceptibility weighted imaging, axial diffusion weighted images, and coronal T2 images were obtained. CLINICAL INFORMATION: G30.9 - Alzheimer's disease, unspecified COMPARISON: None. FINDINGS: No evidence of restricted diffusion to suggest acute ischemia. Ventricular system and basal cisterns are patent. Mild to moderate small vessel changes with mild parenchymal volume loss. Moderate symmetric atrophy involving the anterior mesial temporal lobes and hippocampal formations. No remarkable asymmetric parenchymal volume loss in the frontal or parietal lobes. Small vessel changes in the angela. Normal posterior fossa. Normal brainstem. Normal vascular flow voids at the skull base. No extra-axial fluid collections. No evidence of mass or mass effect. Small retention cyst LEFT maxillary sinus measuring 8 mm. Mastoid air cells demonstrate mild mucosal thickening. No other suspicious findings. MR/MR head wo con* [id number] IMPRESSION: 1. No evidence of restricted diffusion to suggest acute ischemia. 2. Mild to moderate small vessel changes with mild parenchymal volume loss. 3. Moderate symmetric atrophy of the anterior mesial temporal lobes and hippoc ampal formations. 4. Small vessel changes in the angela. 5. No hemosiderin on the susceptibly weighted images.
== END 2025-01-22 13:59 | disposition home or self-care (01) ==
LOC: RAD 13:59
PROVIDERS: PCP Family Medicine; Visit Provider Specialist
DX: G30.9 Alzheimer's disease, unspecified (principal); F02.80 Dementia in other diseases classified elsewhere, unspecified severity, without behavioral disturbance, psychotic disturbance, mood disturbance, and anxiety; R41.89 Other symptoms and signs involving cognitive functions and awareness; R93.0 Abnormal findings on diagnostic imaging of skull and head, not elsewhere classified; G31.89 Other specified degenerative diseases of nervous system; M27.40 Unspecified cyst of jaw; H74.8X9 Other specified disorders of middle ear and mastoid, unspecified ear
CPT/HCPCS: 70551

== ENCOUNTER → 2025-04-13 13:44 | Outpatient (BNVA) | payer MEDICARE, SELFPAY | PROVIDERS: PCP Family Medicine; Visit Provider Internal Medicine Cardiovascular Disease | DX: I35.0 Nonrheumatic aortic (valve) stenosis (principal); I10 Essential (primary) hypertension; Z87.891 Personal history of nicotine dependence | CPT/HCPCS: 99214 ==

== ENCOUNTER 2025-05-25 09:26 | Outpatient (RCR) | payer MEDICARE, SELFPAY | END 2025-06-03 23:59 | disposition home or self-care (01) | LOC: SPT 09:26 | PROVIDERS: Visit Provider Nurse Practitioner Family | DX: R39.15 Urgency of urination (principal); N39.41 Urge incontinence; R35.0 Frequency of micturition; N32.81 Overactive bladder | CPT/HCPCS: 97161 ==

== ENCOUNTER 2025-06-01 11:30 | Outpatient (CLI) | payer MEDICARE, SELFPAY ==
--- NOTE | 2025-06-01 12:00 | USCV_ITS ---
Jo Ann Kirkland Age: 79 Gender: F : 1945 Exam Date: 06/01/2025 11:59 Ordering Phys: Mercedes Rojas MD ([email or web address]) Technologist: Exam Location: [facility] [place] Indication: as BP: 125 / 70 HR: 87 Rhythm: Sinus Technical Quality: Adequate MEASUREMENTS (Male / Female) Normal Values 2D ECHO LV Diastolic Diameter PLAX 3.8 cm 4.2 - 5.9 / 3.9 - 5.3 cm IVS Diastolic Thickness 1.1 cm 0.6 - 1.0 / 0.6 - 0.9 cm IVS Systolic Thickness 1.6 cm LVPW Diastolic Thickness 1.1 cm 0.6 - 1.0 / 0.6 - 0.9 cm LVPW Systolic Thickness 1.5 cm LVOT Diameter 2.0 cm LV Ejection Fraction 2D Teich 69.0 % LV Ejection Fraction MOD 4C 57.7 % LV Ejection Fraction MOD 2C 56.0 % LV Ejection Fraction 2C AL 56.7 % LA Diameter 3.5 cm RA Systolic Volume 4C AL 24.6 ml RA Systolic Volume 4C MOD 22.5 ml Aorta at Sinotubular Diameter 2.7 cm IVC Diameter 1.5 cm M-MODE LA Ao Ratio MM 1.1 AV Cusp Separation MM 1.5 cm DOPPLER AV Peak Velocity 239.7 cm/s LVOT Peak Velocity 121.0 cm/s AV Area Cont Eq vti 1.8 cm squared AV Area Cont Eq pk 1.6 cm squared MV Peak Velocity 202.0 cm/s MV Area PHT 3.7 cm squared Mitral E to A Ratio 0.6 TV Peak Velocity 181.0 cm/s TR Peak Velocity 226.0 cm/s TR Peak Gradient 20.4 mmHg TV Peak E Velocity 101.0 cm/s PV Peak Velocity 107.0 cm/s FINDINGS Left Ventricle Normal left ventricular size, systolic function and wall thickness, with no regional wall motion abnormalities. Left ventricular ejection fraction is estimated at 60 %. Grade I/IV diastolic dysfunction (abnormal relaxation filling pattern), normal to mildly elevated filling pressures. Right Ventricle The right ventricle is normal in size and function. Right Atrium The right atrium is normal in size. Left Atrium The left atrium is normal in size. Mitral Valve Moderately thickened mitral valve. Moderate mitral annular calcification. Mild mitral valve stenosis. Mild mitral valve regurgitation. Mitral valve mean gradient is 5.9 mmHg. Aortic Valve Severe aortic valve calcification. No aortic valve stenosis. Mild aortic valve regurgitation. Tricuspid Valve Trace tricuspid valve regurgitation. Pulmonic Valve Structurally normal pulmonic valve without significant stenosis. There is no pulmonic regurgitation. Pericardium Normal pericardium without effusion. Aorta Normal ascending aorta dimension. IVC The inferior vena cava appears normal. CONCLUSIONS Normal left ventricular size, systolic function and wall thickness, with no regional wall motion abnormalities. Left ventricular ejection fraction is estimated at 60 %. Grade I/IV diastolic dysfunction (abnormal relaxation filling pattern), normal to mildly elevated filling pressures. Moderately thickened mitral valve. Moderate mitral annular calcification. Mild mitral valve stenosis. Mild mitral valve regurgitation. Mitral valve mean gradient is 5.9 mmHg. Severe aortic valve calcification. No aortic valve stenosis. Mild aortic valve regurgitation. Trace tricuspid valve regurgitation. Pulmonary artery systolic pressure is within normal limits. Right atrial pressure is around 5 mm of mercury. Mercedes Rojas MD (Electronically Signed) Final Date: 02 June 2025 23:43 S
== END 2025-06-01 11:31 | disposition home or self-care (01) ==
PROVIDERS: PCP Family Medicine; Visit Provider Internal Medicine Cardiovascular Disease
DX: I35.0 Nonrheumatic aortic (valve) stenosis (principal); I05.0 Rheumatic mitral stenosis; I35.8 Other nonrheumatic aortic valve disorders; I35.1 Nonrheumatic aortic (valve) insufficiency; I36.1 Nonrheumatic tricuspid (valve) insufficiency
CPT/HCPCS: 93306

== ENCOUNTER 2025-06-04 05:00 | Outpatient (RCR) | payer MEDICARE, SELFPAY | END 2025-07-04 23:59 | disposition home or self-care (01) | LOC: SPT 05:00 | PROVIDERS: PCP Family Medicine; Visit Provider Nurse Practitioner Family | DX: R39.15 Urgency of urination (principal); N39.41 Urge incontinence; R35.0 Frequency of micturition; N32.81 Overactive bladder | CPT/HCPCS: 97110 ==

== ENCOUNTER 2025-07-05 05:00 | Outpatient (RCR) | payer MEDICARE, SELFPAY | END 2025-08-03 23:59 | disposition home or self-care (01) | LOC: SPT 05:00 | PROVIDERS: PCP Family Medicine; Visit Provider Nurse Practitioner Family | DX: R39.15 Urgency of urination (principal); N39.41 Urge incontinence; R35.0 Frequency of micturition; N32.81 Overactive bladder | CPT/HCPCS: 97110; 97530 ==

== ENCOUNTER 2025-08-04 06:30 | Outpatient (RCR) | payer MEDICARE, SELFPAY | END 2025-09-03 23:59 | disposition home or self-care (01) | LOC: SPT 06:30 | PROVIDERS: PCP Family Medicine; Visit Provider Nurse Practitioner Family | DX: R39.15 Urgency of urination (principal); N39.41 Urge incontinence; R35.0 Frequency of micturition; N32.81 Overactive bladder | CPT/HCPCS: 97530 ==

== ENCOUNTER → 2025-08-18 11:45 | Outpatient (BNVA) | payer MEDICARE, SELFPAY | PROVIDERS: PCP Family Medicine; Visit Provider Specialist | DX: G30.9 Alzheimer's disease, unspecified (principal); F02.80 Dementia in other diseases classified elsewhere, unspecified severity, without behavioral disturbance, psychotic disturbance, mood disturbance, and anxiety; R03.0 Elevated blood-pressure reading, without diagnosis of hypertension | CPT/HCPCS: G0463 ==

== ENCOUNTER 2025-10-06 11:27 | Outpatient (CLI) | payer MEDICARE, SELFPAY ==
--- NOTE | 2025-10-06 11:33 | XRR_ITS ---
PROCEDURE INFORMATION: Exam: XR Lumbosacral Spine Exam date and time: 10/06/2025 11:45 AM Age: 79 years old Clinical indication: Low back pain; Additional info: M48.062 - spinal stenosis, lumbar region with neurogenic . . . TECHNIQUE: Imaging protocol: Radiologic exam of the lumbosacral spine. Views: 2 or 3 views. COMPARISON: OT XR lumbar spine 1V port [id number] 04/04/2022 9:08 AM FINDINGS: Bones/joints: Multilevel disc space narrowing and spurring. No acute fracture. Normal alignment. Nonspecific bowel gas pattern. Degenerative changes of the lumbar spine. Mild left thoracolumbar curvature. Soft tissues: Unremarkable. XR/XR lumbar spine 2-3V* [id number] IMPRESSION: No acute findings.
== END 2025-10-06 11:28 | disposition home or self-care (01) ==
LOC: RAD 11:29
PROVIDERS: PCP Family Medicine; Visit Provider Family Medicine
DX: M48.062 Spinal stenosis, lumbar region with neurogenic claudication (principal); Z98.890 Other specified postprocedural states
CPT/HCPCS: 72100

== ENCOUNTER → 2025-10-11 13:13 | Outpatient (BNVA) | payer MEDICARE, SELFPAY | PROVIDERS: PCP Family Medicine; Referring Provider Family Medicine; Visit Provider Anesthesiology Pain Medicine | DX: M48.062 Spinal stenosis, lumbar region with neurogenic claudication (principal); M47.816 Spondylosis without myelopathy or radiculopathy, lumbar region | CPT/HCPCS: 99204 ==

== ENCOUNTER → 2025-10-18 08:50 | Outpatient (BNVA) | payer MEDICARE, SELFPAY | PROVIDERS: PCP Family Medicine; Visit Provider Anesthesiology Pain Medicine | DX: M79.18 Myalgia, other site (principal); M48.062 Spinal stenosis, lumbar region with neurogenic claudication; M47.816 Spondylosis without myelopathy or radiculopathy, lumbar region; I35.0 Nonrheumatic aortic (valve) stenosis; I34.2 Nonrheumatic mitral (valve) stenosis; I10 Essential (primary) hypertension; Z87.891 Personal history of nicotine dependence | CPT/HCPCS: 20553; 99214; J1010; J3490 ==